=== PATIENT | male | born 1975 | race Caucasian/White ===

== ENCOUNTER 2023-07-22 02:26 | Emergency (ER) | payer MEDICAID ==
[2023-07-22] MEDS ORDERED: KETOROLAC TROMETHAMINE 30 MG VIAL IM ONE (03:00)
[2023-07-22 04:40] LABS: ANION GAP 11 (5-15); BASOPHILS # (AUTO) 0.1 K/uL (0.0-0.2); BASOPHILS % (AUTO) 0.7 % (0.0-2.0); CALCIUM 8.5 mg/dL (8.4-11.0); CARBON DIOXIDE 24 mmol/L (23-29); CHLORIDE 103 mmol/L (98-107); CREATININE 0.63 mg/dL (0.55-1.30); EOSINOPHILS # (AUTO) 0.2 K/uL (0.0-0.4); EOSINOPHILS % (AUTO) 2.7 % (0.0-4.0); GFR AFRICAN AMERICAN 175 mL/min (>90); GLUCOSE 103 mg/dL (74-106); HEMATOCRIT 44.6 % (36-54); HEMOGLOBIN 15.2 g/dL (14.0-18.0); LYMPHOCYTES # (AUTO) 2.4 K/uL (1.0-5.5); LYMPHOCYTES % (AUTO) 29.6 % (20.5-51.5); MEAN CORPUSCULAR HEMOGLOBIN 32 pg (27-31); MEAN CORPUSCULAR HGB CONC 34 % (32-36); MEAN CORPUSCULAR VOLUME 92 fL (79.0-98.0); MONOCYTES # (AUTO) 0.5 K/uL (0.0-1.0); MONOCYTES % (AUTO) 6.6 % (1.7-9.3); NEUTROPHILS # (AUTO) 4.9 K/uL (1.8-7.7); NEUTROPHILS % (AUTO) 60.4 % (40.0-70.0); PLATELET COUNT (AUTO) 311 K/uL (130-430); POTASSIUM 3.8 mmol/L (3.5-5.1); RED BLOOD CELL COUNT(AUTO) 4.83 MIL/uL (4.2-6.2); RED CELL DISTRIBUTION WIDTH 14.5 % (9.0-15.0); SODIUM SERUM 138 mmol/L (136-145); UREA NITROGEN, BLOOD 7 mg/dL (8-21); WHITE BLOOD COUNT (AUTO) 8.1 K/uL (4.8-10.8)
[2023-07-22 04:44] LABS: GFR NON AFRICAN-AMERICAN 144 mL/min (>90)
[2023-07-22 04:48] LABS: LIPASE 37 U/L (16-77)
[2023-07-22] MEDS ORDERED: IBUP-1969 PO (05:21)
[2023-07-22] MEDS ORDERED: ACET-2634 PO (05:21)
[2023-07-22] MEDS ORDERED: KETOROLAC TROMETHAMINE 30 MG VIAL ONE (05:26)
[2023-07-22 05:31] VITALS: BP_SYST 123; PULSE 73; RESP 18; TEMP 98; O2SAT 97
== END 2023-07-22 05:31 | disposition home or self-care (01) ==
LOC: SED 02:26
DX: R07.89 Other chest pain (principal); F17.210 Nicotine dependence, cigarettes, uncomplicated; J45.909 Unspecified asthma, uncomplicated; Z79.899 Other long term (current) drug therapy
CPT/HCPCS: 99285; 71045; 80048; 83880; 83690; 85025; 84484; 36415; 93005; 96372; J1885